=== PATIENT | male | born 1970 | race Caucasian/White ===

== ENCOUNTER 2017-12-05 07:40 | Emergency (ER) | payer MEDICARE, MEDICAID ==
[~2017-12-05] VITALS: Ht 175.3 cm; Wt 73.0 kg
[2017-12-05 08:54] VITALS: BP 114/73
== END 2017-12-05 09:30 | disposition home or self-care (01) ==
LOC: ED 09:08
DX: J18.9 Pneumonia, unspecified organism (principal); H92.09 Otalgia, unspecified ear; Z88.0 Allergy status to penicillin
CPT/HCPCS: 71046; 93005; 99284

== ENCOUNTER 2018-01-03 16:29 | Emergency (ER) | payer MEDICARE, MEDICAID ==
[~2018-01-03] VITALS: Ht 152.4 cm; Wt 79.1 kg
[2018-01-03 17:57] VITALS: BP 124/80
== END 2018-01-03 19:33 | disposition home or self-care (01) ==
LOC: ED 16:41
DX: F10.221 Alcohol dependence with intoxication delirium (principal); Z71.41 Alcohol abuse counseling and surveillance of alcoholic
CPT/HCPCS: 70450; 70486; 99284

== ENCOUNTER 2019-12-15 23:15 | Emergency (ER) | payer MEDICARE, MEDICAID ==
[~2019-12-15] VITALS: Ht 175.3 cm; Wt 81.9 kg
[~2019-12-15 23:15] MED LIST: BENZ200C48 PO; FERR325T17 PO; NICO-486 TD; PANT40TA3 PO; SERT50TA28 PO
[2019-12-15 23:18] VITALS: BP 153/85
== END 2019-12-15 23:52 | disposition home or self-care (01) ==
LOC: ED 23:39
DX: K08.89 Other specified disorders of teeth and supporting structures (principal)
CPT/HCPCS: 99283

== ENCOUNTER 2020-03-20 13:45 | Emergency (ER) | payer MEDICARE, MEDICAID ==
[~2020-03-20] VITALS: Ht 175.3 cm; Wt 71.6 kg
[2020-03-20 13:50] VITALS: BP 146/112
--- NOTE | 2020-03-20 14:05 | NUR ---
HAND ENDBAND CUTTER: PT AMBULATORY TO ROOM AT THIS TIME FROM LOBBY WITH STEADY GAIT WITH GRINDER LAP
--- NOTE | 2020-03-20 14:11 | NUR ---
TASK RN: PT AMBULATORY TO ROOM 20 W/ C/O L LOWER BACK DENTAL PAIN STARTED A FEW DAYS AGO. PT NOTED TO HAVE WHITE/BLACK HOLE IN BACK OF MOUTH. PT RESTING ON GURNEY. NADN. NO SWELLING TO FACE NOTED.
== END 2020-03-20 15:04 | disposition home or self-care (01) ==
LOC: ED 14:50
DX: K02.9 Dental caries, unspecified (principal)
CPT/HCPCS: 99283

== ENCOUNTER 2020-10-08 12:10 | Emergency (ER) | payer MEDICARE, MEDICAID ==
[~2020-10-08] VITALS: Ht 175.3 cm; Wt 73.0 kg
[2020-10-08 12:34] VITALS: BP 128/72
[2020-10-08 12:56] LABS: BASOPHILS % (AUTO) 1 % (0-1); EOSINOPHILS % (AUTO) 2 % (1-7); LYMPHOCYTES % (AUTO) 36 % (22-44); MEAN CORPUSCULAR HEMOGLOBIN 25.2 pg (27.5-34.5); MEAN PLATELET VOLUME 7.8 fL (7.4-10.4); MONOCYTES % (AUTO) 9 % (2-9); NEUTROPHILS % (AUTO) 52 % (42-75); PLATELET COUNT 278 x10^3/uL (130-400); RED BLOOD COUNT 5.82 x10^6/uL (4.38-5.82); RED CELL DISTRIBUTION WIDTH 19.6 % (9.4-14.8)
[2020-10-08 13:06] LABS: ALBUMIN 3.4 g/dL (3.4-5.0); CALCIUM 8.5 mg/dL (8.5-10.1)
[2020-10-08 13:12] LABS: ALANINE AMINOTRANSFERASE 19 U/L (12-78); ALKALINE PHOSPHATASE 58 U/L (45-117); BILIRUBIN,TOTAL 0.3 mg/dL (0.2-1.0); CREATININE 0.86 mg/dL (0.7-1.3); TOTAL PROTEIN 6.6 g/dL (6.4-8.2); TROPONIN I < 0.015 ng/mL (0.000-0.045)
[2020-10-08 13:14] LABS: ANION GAP 5 mmol/L (5-15); CHLORIDE 110 mmol/L (98-107)
[2020-10-08 13:23] LABS: ANISOCYTOSIS 1+; OVALOCYTES 1+
[2020-10-08 13:24] LABS: <PLATELET ESTIMATE> ADEQUATE; <PLT MORPHOLOGY> NORMAL PLT MORPH
--- NOTE | 2020-10-08 13:43 | NUR ---
PT walked back from lobby with chief complaint of sob for few months.
== END 2020-10-08 15:50 | disposition home or self-care (01) ==
LOC: ED 15:30
DX: J45.41 Moderate persistent asthma with (acute) exacerbation (principal); Z76.0 Encounter for issue of repeat prescription
CPT/HCPCS: 36415; 71045; 80053; 83880; 84484; 85025; 93005; 99285